=== PATIENT | male | born 1955 | race Caucasian/White ===

== ENCOUNTER → 2021-05-05 07:02 | Outpatient (CLI) | payer SELFPAY ==
--- NOTE | 2021-05-05 | CA_ITS ---
APPROVED REPORT Exam: Exercise Treadmill Technologist: Codi Lam, Ht: 6 ft 2 in Wt: 210 lbs BSA: 2.22 m2 HR: 65 bpm BP: 150/100 mmHg Medical History Medications: Crestor,,,,, Losartan HCTZ,,,,, Stress Test Details Test: Manual Treadmill HR Resting HR: 72 bpm Max Heart Rate (APMHR): 157.103282 bpm Max HR Achieved: 149 bpm Target HR (85% APMHR): 133.474596 bpm % of APMHR: 94.90 Recovery HR: 90 bpm BP Resting BP: 159/110 mmHg Max BP: 165/100 mmHg Recovery BP: 141.0/82.0 mmHg ECG Resting ECG: NSR, RBBB, PVC Clinical Exercise duration: 08:50 min Highest Stage Achieved: Exercise capacity: 10.1 METs Stress ECG Conclusion Exercised 8:50 on Ricki Protocol, stopping due to SOA. Max HR: 149 % of PM: 95% Max BP: 165/100 MET's: 10.1 Test stopped due to SOA Symptoms: No CP Arrhythmias/Ectopy: Occ PVC and PAC ST-T Changes: Approx 1.5mm upsloping ST depression laterally. T wave inversion in the lateral leads in recovery. Conclusion: EKG changes (+) for ischemia. Rest and stress Echo images reported separately. Test Summary REST . . . . . . . Sitting REST . . . . . . . Standing REST 11:07 0.0 0.0 72 . 159/110 . . Stage 1 01:00 10.0 1.7 95 . . . . Stage 1 02:00 10.0 1.7 100 . . . . Stage 1 03:00 10.0 1.7 99 . 150/104 . . Stage 2 01:00 12.0 2.5 112 . . . . Stage 2 02:00 12.0 2.5 118 . . . . Stage 2 03:00 12.0 2.5 120 . 165/100 . . Stage 3 01:00 14.0 3.4 133 . . . . Stage 3 02:00 14.0 3.4 144 . . . . Stage 3 02:50 14.0 3.4 149 . . . Stop exercise at 08:50 RECOVERY . . . . . . . Protocol changed to Manual Treadmill RECOVERY 01:00 0.0 0.0 115 . . . . RECOVERY 02:00 0.0 0.0 96 . . . . RECOVERY 03:00 0.0 0.0 94 . . . . RECOVERY 04:00 0.0 0.0 93 . . . . RECOVERY 05:00 0.0 0.0 91 . . . . RECOVERY 06:00 0.0 0.0 88 . 141/ 82 . . RECOVERY 07:00 0.0 0.0 89 . 141/ 82 . . RECOVERY 08:00 0.0 0.0 87 . 141/ 82 . . RECOVERY 08:23 0.0 0.0 88 . 141/ 82 . . Electronically signed by : Giovany Angeles, 05/05/2021 15:09:20
--- NOTE | 2021-05-05 07:14 | CT_ITS ---
PROCEDURE: CT HEART W CALCIUM SCORE CLINICAL HISTORY: family history COMPARISON: No exams were available for comparison TECHNIQUE: Axial images obtained with sagittal and coronal reformats. All CT scans at the facility use one or more dose reduction, viz: automated exposure control, ma/kV adjustment per patient size (including targeted exams where dose is matched to indication, i.e. head), or iterative reconstruction technique. FINDINGS: The coronary artery calcium score is 1299. Extensive calcific plaque burden with very high cardiovascular disease risk IMPRESSION: Extensive calcific plaque burden with very high cardiovascular disease risk Dictated by: Aristeo Gentile MD 05/05/2021 15:51 Aristeo Gentile MD in [place] 05/05/2021 15:51
== END ==
PROVIDERS: PCP Family Medicine; Visit Provider Physician Assistant
DX: Z13.6 Encounter for screening for cardiovascular disorders (principal); I45.10 Unspecified right bundle-branch block; R94.31 Abnormal electrocardiogram [ECG] [EKG]; E78.5 Hyperlipidemia, unspecified
CPT/HCPCS: 75571; 93017

== ENCOUNTER → 2021-05-05 07:07 | Outpatient (CLI) | payer BC, SELFPAY ==
--- NOTE | 2021-05-05 07:09 | CA_ITS ---
APPROVED REPORT EXAM: Comprehensive 2D, Doppler, and color-flow Echocardiogram Marketing Assistant [employer]: Lilibeth Fernandes RT(R) Ht: 6 ft 2 in Wt: 210lbs BSA: 2.22 HR: 67 bpm BP: 156/110 mmHg Indications: SOB, CP, Family history of HD, HTN, hyperlipidemia. TDE due to lung interference. Stress Test Details HR Max Heart Rate (APMHR): 157.361084 bpm Target HR (85% APMHR): 133.231019 bpm BP ECG Conclusion 1. Patient exercised on Ricki protocol 8 minutes and 50 seconds, EKG was positive for ischemia, patient has good exercise capacity achieved 10.1 METs of workload on treadmill, the blood pressure response to exercise was abnormal. 2. Normal left ventricular systolic function at rest with no regional wall motion abnormality, however with exercise the endocardial surfaces are very poorly visualized, hence the echocardiogram with exercise was nondiagnostic as endocardial surfaces were not visualized to evaluate for segmental wall motion abnormality. 3. Equivocal exercise stress echo, if clinically indicated repeat study with myocardial perfusion imaging is recommended. Electronically signed by : Giovany Angeles, 05/05/2021 15:11:04
--- NOTE | 2021-05-05 07:09 | CA_ITS ---
APPROVED REPORT EXAM: Comprehensive 2D, Doppler, and color-flow Echocardiogram Aluminum Pool Installer: Mishel Iyer RVT Ht: 6 ft 2 in Wt: 210lbs BSA: 2.22 BP: 155/100 mmHg Indications: CP,HTN,HLD,FAMILY HX HD 2D Dimensions LVOT 2.48 cm (M/F) 1.5-2.5 LA Volume 29.80 mL LA Volume Index 13.42 mL/m2 (M/F) 16-34 M-Mode Dimensions RVDd 3.22 cm (0.9-2.6) LA Diam 4.91 cm (1.9-4.0) LVDd 4.87 cm (3.5-5.7) Ao Diam 3.16 cm (2.0-3.7) LVDs 3.44 cm (3.5-5.7) IVSd 0.49 cm (0.6-1.1) PWd 1.25 cm (0.6-1.1) EF (Teich) 56.10% FS 29.40% EDV (Teich) 111.20 mL ESV (Teich) 48.80 mL LV Diastology E Decel Time 217.00 (160-240 msec) E/A Ratio 0.9 MED E' 5.80 (< 7 cm/sec) E'/MED E' Ratio 9.83 (>14) LAT E' 7.80 (<10 cm/sec) E/LAT E' Ratio 7.31 (>14) Aortic Valve AO Peak GR. 3.90 mmHg Mitral Valve MV E Max Cirilo. 57.00 (40-130 cm/s) MV A Velocity 66.00 (40-130 cm/s) E/A Ratio 0.86 MV Decel. Time 217.00 (160-240 ms) MV PHT 63.00 ms Pulmonary Valve PV Peak Velocity 72.00 (50-150 cm/s) Tricuspid Valve TR P. Velocity 262.00 cm/s RAP Estimate 10.00 mmHg RVSP 37.60 mmHg Left Ventricle Technically difficult study because of the patient fact in poor acoustic windows. Left atrium is normal size, left ventricle is normal size, visually estimated ejection fraction 50% with no obvious regional wall motion abnormality, endocardial surfaces are poorly visualized. Diastolic parameters are inconclusive. Right Ventricle Right atrium and right ventricle are normal size and contractility. Aortic Valve Aortic valve is minimally thickened and fibrosed, there is no aortic stenosis or aortic insufficiency. Mitral Valve Mitral valve is grossly normal, there is trace mitral regurgitation. Tricuspid Valve Tricuspid valve grossly normal, there is trace tricuspid regurgitation, tricuspid regurgitation jet velocity is inadequate for calculation of the right ventricular systolic pressure. Pulmonic Valve Pulmonic valve is poorly visualized. Great Vessels Aortic root is normal size. Pericardium No significant pericardial effusion noted. Conclusion 1. Normal left ventricular size, preserved left ventricular systolic function, visually estimated ejection fraction 50% with no regional wall motion abnormality, diastolic parameters are inconclusive. Endocardial surfaces are poorly visualized. 2. Trace mitral and tricuspid regurgitation. 3. No significant pericardial effusion noted. Electronically signed by : Giovany Angeles, 05/05/2021 15:06:12
--- NOTE | 2021-05-19 14:02 | PC.NURSE ---
PATIENT TOOK [facility] DEVICE HOME AND DID NOT RETURN FOR OVER 10 DAYS - FINALLY WHEN RETURNED PATIENT HAD NOT COMPLETED TEST - THEREFORE NO CHARGE....
== END ==
PROVIDERS: PCP Family Medicine; Visit Provider Physician Assistant
DX: I45.10 Unspecified right bundle-branch block (principal); E78.5 Hyperlipidemia, unspecified; R94.31 Abnormal electrocardiogram [ECG] [EKG]
CPT/HCPCS: 93017; 93306; 93350